=== PATIENT | female | born 1970 | race Hispanic/Latino ===

== ENCOUNTER 2021-06-23 15:33 | Emergency (ER) | payer OTHER ==
[~2021-06-23] VITALS: Ht 157.5 cm; Wt 99.8 kg
[2021-06-23 15:36] VITALS: BP 155/98
[2021-06-23] MEDS ORDERED: HYDROCODONE/ACETAMINOPHEN 10/325 MG TAB PO ONE (17:30)
[2021-06-23] MEDS ORDERED: CYCLOBENZAPRINE HCL 10 MG TABLET PO ONE (17:30)
[2021-06-23] MEDS ORDERED: KETOROLAC 60 MG VIAL (30MG/ML) IM ONE (17:30)
[2021-06-23] MEDS ORDERED: CYCL10 PO (18:16)
[2021-06-23] MEDS ORDERED: NAPR-1180 PO (18:22)
== END 2021-06-23 18:29 | disposition home or self-care (01) ==
LOC: EDH 15:33
DX: S22.32XA Fracture of one rib, left side, initial encounter for closed fracture (principal); W18.39XA Other fall on same level, initial encounter; Y93.89 Activity, other specified; Y92.89 Other specified places as the place of occurrence of the external cause; Y99.8 Other external cause status
CPT/HCPCS: 71250; 96372; 99284; J1885